=== PATIENT | female | born 1960 ===

== ENCOUNTER 2024-09-22 05:02 | Inpatient (IN) | payer OTHER, MEDICAID ==
[~2024-09-22] VITALS: Ht 162.6 cm; Wt 69.7 kg
[2024-09-22 07:43] LABS: Basophils # (auto) 0 10 ^3/uL (0-0.2); Basophils % (auto) 1.2 % (0.0-2.0); Eosinophils # (auto) 0 10 ^3/uL (0-0.8); Hematocrit 42.2 % (36.0-46.0); Hemoglobin 14.2 g/dL (12.2-16.2); Lymphocytes # (auto) 0.9 10 ^3/uL (0.4-5.4); Mean Corpuscular Hgb Conc. 33.7 g/dL (32.0-36.0); Mean Corpuscular Volume 83.2 fL (80.0-100.0); Monocytes # (auto) 0.4 10 ^3/uL (0-1.3); Monocytes % (auto) 8.8 % (0.0-12.0); Neutrophils # (auto) 2.7 10 ^3/uL (1.6-8.6); Nucleated Red Blood Cells % 0.2 %; Platelet Count (auto) 200 10^3/uL (140-450); Red Blood Cells 5.08 10^6/uL (4.0-5.20); Red Cell Distribution Width 14.3 % (11.8-14.3)
[2024-09-22 07:44] LABS: Potassium 4.6 mmol/L (3.5-5.1)
[2024-09-22 07:45] LABS: Anion Gap 9 (5-15); Calcium 10.2 mg/dL (8.7-10.4); Carbon Dioxide 23 mmol/L (20-31)
[2024-09-22 07:50] LABS: BUN/Creatinine Ratio 24.1 (10.0-20.0); Blood Urea Nitrogen 20 mg/dL (9-23)
[2024-09-22 07:51] LABS: CRP High Sensitivity 0.36 mg/dL (<1.0); Chloride 96 mmol/L (98-107); Sodium 128 mmol/L (136-145)
[2024-09-22 07:54] LABS: Glucose 637 mg/dL (74-106)
[2024-09-22 08:47] LABS: Erythrocyte Sedimentation Rate 18 mm/hr (0-20)
[2024-09-22] MEDS: InsuLIN REG 1unit/0.01ml Soln (100units/ml) SC ONE (08:47)
--- NOTE | 2024-09-22 08:47 | ED.PDOC ---
Back pain HPI HPI Comments This is a pleasant 63-year-old female with a history of diabetes, hyperlipidemia, hypertension scoliosis that presents with a chief complaint of atraumatic nonradiating right paralumbar back pain. Started two weeks ago and pain has been persistent since. No trauma no injury. Reports she is unable to get adequate relief with Melba and hydrocodone. States she takes opiates for her chronic arm pain. Denies history of chronic steroid use or history of osteoporosis Denies any history of cancer Denies fevers chills night sweats nausea vomiting unintentional weight loss Denies IV drug use history of HIV/TB Denies abdominal "tearing" pain Denies syncope Denies urinary incontinence or urinary changes Denies numbness tingling of the groin or inner thigh Denies previous back procedure or surgery Chief Complaint: Back Pain Time Seen by MD: 06:46 Reviewed Notes: Nurses Notes, Medications, Allergies Allergies: Coded Allergies: NO KNOWN ALLERGIES (Unverified , 09/22/24) Home Meds Reported Medications Atorvastatin Calcium (ATORVASTATIN CALCIUM) 40 Mg Tab, 1 TAB PO DAILY 09/22/24 Benazepril Hcl (Benazepril Hcl) 10 Mg Tab, 1 TAB PO DAILY 09/22/24 Trazodone Hcl (Trazodone Hcl) 50 Mg Tab, 1 TAB PO HS 09/22/24 Metformin Hydrochloride (Metformin Hcl) 500 Mg Tab, 1 TAB PO BID 09/22/24 Cyclobenzaprine HCl (Cyclobenzaprine Hydrochlo) 10 Mg Tab, 1 TAB PO Q8HPRN PRN 09/22/24 Ibuprofen Micronized (Ibuprofen) 800 Mg Tab, 1 TAB PO BIDPRN PRN 09/22/24 Acetaminophen W/ Codeine (Acetaminophen/Codeine) 1 Tab Tab, 1 TAB PO Q8H 09/22/24 Pregabalin (Pregabalin) 150 Mg Cap, 1 CAP PO BID 09/22/24 Information Source: Patient Mode of Arrival: Ambulatory Past Medical History PAST MEDICAL HISTORY: DM, High Lipids, HTN Surgical History: Denies all surgeries [employer] History: No Pertinent [employer] History Family History Family History: Reviewed,noncontributory to illness Social History Smoker: Non-Smoker Alcohol: Denies ETOH Use Drugs: Denies Drug Use All Other Systems: Reviewed and Negative (PER HPI) Physical Exam General Appearance: No Apparent Distress, Normal HEENT: Normal ENT Inspection, Pharynx Normal, TMs Normal Neck: Full Range of Motion, Non-Tender, Normal, Normal Inspection Respiratory: Chest Non-Tender, Lungs Clear, No Accessory Muscle Use, No Respiratory Distress, Normal Breath Sounds Cardiovascular: No Murmur, No Gallop, Regular Rate/Rhythm Breast Exam: Deferred Gastrointestinal: No Organomegaly, Non Tender, No Pulsatile Mass, Normal Bowel Sounds, Soft Genitalia: Deferred Pelvic: Deferred Rectal: Deferred Extremities: No calf tenderness, Normal capillary refill, Normal inspection, Normal range of motion, Non-tender, No pedal edema Musculoskeletal : Apperance: Normal Neurologic: Alert, No Motor Deficits, Normal Affect, Normal Mood, No Sensory Deficits Cerebellar Function: Normal Reflexes: Normal Skin: Dry, Normal Color, Warm Lymphatic: No Adenopathy Was a procedure done? Was a procedure done?: No Images 1 - Midline tenderness. No bony step-offs on palpation. Localized paraspinal tenderness to the lumbar region. Back Pain Differential Dx Differential Diagnosis: Musculoskeletal Pain X-Ray, Labs, Meds, VS Vital Signs Date Time Temp Pulse Resp B/P (MAP) Pulse Ox O2 Delivery O2 Flow Rate FiO2 09/22/24 09:36 84 18 141/90 09/22/24 09:06 84 18 141/90 09/22/24 09:05 84 18 96 Room Air* 0 21 09/22/24 09:05 98.3 84 18 141/90 (107) 96 98.3 09/22/24 07:17 97.8 82 16 128/77 (94) 95 97.8 09/22/24 05:17 97.3 90 18 161/93 (115) 95 97.3 Lab Test 09/22/24 08:34 09/22/24 08:03 09/22/24 07:07 09/22/24 05:15 Range/Units POC Glucose 436 *H 70-106 mg/dl Troponin I High Sensitivity < 3 L < 3 L </=34 ng/L Beta-Hydroxybutyric Acid Pending White Blood Count 4.0 L 4.4-10.8 10^3/uL Red Blood Count 5.08 4.0-5.20 10^6/uL Hemoglobin 14.2 12.2-16.2 g/dL Hematocrit 42.2 36.0-46.0 % Mean Corpuscular Volume 83.2 80.0-100.0 fL Mean Corpuscular Hemoglobin 28.0 28.0-32.0 pg Mean Corpuscular Hemoglobin Concent 33.7 32.0-36.0 g/dL Red Cell Distribution Width 14.3 11.8-14.3 % Platelet Count 200 140-450 10^3/uL Mean Platelet Volume 8.8 6.9-10.8 fL Neutrophils (%) (Auto) 67.0 37.0-80.0 % Lymphocytes (%) (Auto) 22.0 10.0-50.0 % Monocytes (%) (Auto) 8.8 0.0-12.0 % Eosinophils (%) (Auto) 1.0 0.0-7.0 % Basophils (%) (Auto) 1.2 0.0-2.0 % Neutrophils # (Auto) 2.7 1.6-8.6 10 ^3/uL Lymphocytes # (Auto) 0.9 0.4-5.4 10 ^3/uL Monocytes # (Auto) 0.4 0-1.3 10 ^3/uL Eosinophils # (Auto) 0 0-0.8 10 ^3/uL Basophils # (Auto) 0 0-0.2 10 ^3/uL Nucleated Red Blood Cells 0.2 % Erythrocyte Sedimentation Rate 18 0-20 mm/hr Sodium Level 128 L 136-145 mmol/L Potassium Level 4.6 3.5-5.1 mmol/L Chloride Level 96 L 98-107 mmol/L Carbon Dioxide Level 23 20-31 mmol/L Anion Gap 9 5-15 Blood Urea Nitrogen 20 9-23 mg/dL Creatinine 0.83 0.550-1.02 mg/dL Glomerular Filtration Rate Calc 78 >90 mL/min BUN/Creatinine Ratio 24.1 H 10.0-20.0 Serum Glucose 637 *H 74-106 mg/dL Calcium Level 10.2 8.7-10.4 mg/dL C-Reactive Protein High Sensitivity 0.36 <1.0 mg/dL Urine Color Pending Urine Clarity Pending Urine pH Pending Urine Specific [place] Pending Urine Protein Pending Urine Ketones Pending Urine Blood Pending Urine Nitrite Pending Urine Bilirubin Pending Urine Urobilinogen Pending Urine Leukocyte Esterase Pending Urine RBC 0 - 4 /hpf Urine Microscopic WBC 0-5 /HPF Urine Squamous Epithelial Cells <5 /hpf Urine Bacteria None Seen /hpf Urine Glucose Pending Current Medications Medications (Trade) Dose Ordered Sig/Selene Route Start Time Stop Time Status Last Admin Insulin Human Regular (InsuLIN R) 10 units ONCE ONCE SC 09/22/24 08:30 09/22/24 08:41 DC 09/22/24 08:47 Morphine Sulfate 4 mg ONCE ONCE IV 09/22/24 09:00 09/22/24 09:01 DC 09/22/24 09:06 Sodium Chloride 1,000 ml @ 1,000 mls/hr Q1H ONCE IV 09/22/24 09:00 09/22/24 09:59 DC 09/22/24 08:58 X-Ray, Labs, Meds, VS Comment The patient presents with signs and symptoms consistent uncontrolled diabetes/hyperglcemia. The cause appears to be dietary / noncompliance. No evidence of infection. No evidence of [place] by history or physical. No other obvious cause found. Labs without evidence of anion gap or acidosis to suggest DKA Patient given IVF, and insulin 10 U subcutaneous. Morphine x1 for her back pain. Patient's history, physical is also consistent with idiopathic nonradiating right lower back pain. Patient will be admitted for hyperglycemia and intractable back pain. Lumbar x-ray ordered and results pending at this time. Patient verbalized understanding of the above and is awaiting further evaluation by the admitting service. Time of 1ST Reevaluation: 08:39 Reevaluation 1ST: Improved Patient Education/Counseling: Diagnosis, Treatment Family Education/Counseling: Diagnosis, Treatment Departure 1 Departure Time of Disposition: 08:39 Impression: Primary Impression: Hyperglycemia Additional Impressions: Back pain Qualified Codes: M54.50 - Low back pain, unspecified Intractable back pain Disposition: ADMITTED INPATIENT Condition: Serious Critical Care Note Critical Care Time?: No Stability Stability form required: No Heart Score Heart Score: Heart Score Response (Comments) Value History N/A 0 EKG N/A 0 Age N/A 0 Risk Factors N/A 0 Troponin N/A 0 Total 0 EL QUIROZ NP September 22, 2024 08:47
[2024-09-22] MEDS: SODIUM CHLORIDE 0.9% 1,000 ML IV ONE ×2 (08:58→12:28)
[2024-09-22 09:05] VITALS: PULSE 84; RESP 18; O2SAT 96
[2024-09-22] MEDS: MORPHINE SULFATE 4 MG/ML SYR/VIAL IV ONE (09:06)
--- NOTE | 2024-09-22 10:13 | DVH ---
XY LUMBAR SPINE 3 VIEW, HISTORY: Back pain. R/o fracture COMPARISON: None TECHNICAL DATA: Frontal and lateral views were obtained of the lumbar spine . FINDINGS: There are 5 lumbar type vertebral bodies. Lumbar curvature is within normal limits. There is no spond ylolisthesis. Vertebral body heights are maintained. Disk heights are narrow. The facet joints appear normal. The sacroiliac joints are symmetric. Paraspinal soft tissues are within normal limits. IMPRESSION: No acute fracture or dislocation of the lumbar spine.
[2024-09-22] MEDS ORDERED: ACET300T51 PO (10:25)
[2024-09-22] MEDS ORDERED: ATOR40TA52 PO (10:25)
[2024-09-22] MEDS ORDERED: TRAZ-227 PO (10:25)
[2024-09-22] MEDS ORDERED: BENA10TA90 PO (10:25)
[2024-09-22] MEDS ORDERED: IBUP-1455 PO (10:25)
[2024-09-22] MEDS ORDERED: PREG150C63 PO (10:25)
[2024-09-22] MEDS ORDERED: METF-370 PO (10:25)
[2024-09-22] MEDS ORDERED: CYCL-611 PO (10:25)
[2024-09-22] MEDS ORDERED: ONDANSETRON HCL 4 MG/2 ML VIAL IV PRN (10:30)
[2024-09-22] MEDS ORDERED: DEXTROSE (50%) 50ML SYRG IV PRN (10:30)
[2024-09-22] MEDS ORDERED: MORPHINE SULFATE INJ 2 MG/ml SYRG IV PRN (10:30)
[2024-09-22] MEDS ORDERED: HYDROcodone-ACET 5/325MG TAB PO PRN (10:30)
[2024-09-22] MEDS ORDERED: ACETAMINOPHEN 325 MG TAB PO PRN (10:30)
[2024-09-22] MEDS ORDERED: IBUPROFEN 800 MG TAB PO PRN (10:30)
--- NOTE | 2024-09-22 10:40 | DVHHP2 ---
History of Present Illness Reason for Visit: Back pain History of Present Illness Liza Pruett is a 63-year-old female with past medical history of hypertension, hyperlipidemia, diabetes, and chronic pain, who came in due to back pain. Patient states she has been experiencing back pain for about 2.5 weeks. She states she came to the hospital today due to it worsening. Lab work showed that the patient had elevated hyperglycemia. Patient states that she does take her medications at home, but that she does not check her blood sugar levels. Cardiovascular: HTN, hyperipidemia Musculoskeletal: Chronic low back pain Past Surgical History: Other (right arm, bladder sling) Smoke: No ALCOHOL: none Drugs: None Lives: with Family Domestic Violence: Neg Review of Systems Constitutional: No: Fever, Chills, Sweats, Weakness, Malaise, Other Eyes: No: Pain, Vision change, Conjunctivae inflammation, Eyelid inflammation, Other, Redness ENT: No: Ear pain, Ear discharge, Nose pain, Nose discharge, Nose congestion, Mouth pain, Mouth swelling, Throat pain, Throat swelling, Other Respiratory: No: Cough, Dry, Shortness of breath, SOB with excertion, Wheezing, Hemoptysis, Pleuritic Pain, Sputum, Wheezing, Other Cardiovascular: No: Chest Pain, Palpitations, Orthopnea, Paroxysmal Noc. Dyspnea, Edema, Lt Headedness, Other Gastrointestinal: No: Nausea, Vomiting, Abdominal Pain, Diarrhea, Constipation, Melena, Hematochezia, Other Genitourinary: No Dysuria, No Frequency, No Incontinence, No Hematuria, No Retention, No Other Musculoskeletal: back pain (right lower for 2.5 weeks); No: other, neck pain, shoulder pain, arm pain, hand pain, leg pain, foot pain Skin: No: Rash, Lesions, Jaundice, Bruising, Other Neurological: No: Weakness, Numbness, Incoordination, Change in speech, Confusion, Seizures, Other Allergies: Coded Allergies: NO KNOWN ALLERGIES (Unverified , 09/22/24) Medications Current Medications Medications Dose Ordered Sig/Selene Route Start Time Stop Time Status Last Admin Dose Admin Acetaminophen/ Hydrocodone Bitart 1 tab Q4HP PRN PO 09/22/24 10:30 UNV Ondansetron HCl 4 mg Q4HP PRN IV 09/22/24 10:30 UNV Docusate Sodium 100 mg BIDPRN PRN PO 09/22/24 10:30 UNV Acetaminophen 650 mg Q6HP PRN PO 09/22/24 10:30 UNV Morphine Sulfate 2 mg Q4HPRN PRN IV 09/22/24 10:30 UNV Exam Vital Signs Vital Signs Date Time Temp Pulse Resp B/P (MAP) Pulse Ox O2 Delivery O2 Flow Rate FiO2 09/22/24 09:36 84 18 141/90 09/22/24 09:05 96 Room Air* 0 21 09/22/24 09:05 98.3 98.3 General Appearance: Alert, Oriented X3, Cooperative, mild distress HEENT: Atraumatic, PERRLA Respiratory: Clear to auscultation, Normal air movement Cardiovascular: Regular rate, Normal S1, Normal S2, No murmurs Abdominal: Normal bowel sounds, Soft, No tenderness, No hepatospenomegaly Extremities: No clubbing, No cyanosis, No edema, Normal pulses, Other Skin: No rashes, No breakdown, No significant lesion Neuro: Normal gait, Normal speech, Strength at 5/5 X4 ext, Normal tone, Other ( Right lower back pain for 2.5 weeks) Psych/Mental Status: Mental status NL, Mood NL Labs/Xrays Labs Test 09/22/24 08:34 09/22/24 08:03 09/22/24 07:07 09/22/24 05:15 Range/Units POC Glucose 436 *H 70-106 mg/dl Troponin I High Sensitivity < 3 L </=34 ng/L White Blood Count 4.0 L 4.4-10.8 10^3/uL Red Blood Count 5.08 4.0-5.20 10^6/uL Hemoglobin 14.2 12.2-16.2 g/dL Hematocrit 42.2 36.0-46.0 % Mean Corpuscular Volume 83.2 80.0-100.0 fL Mean Corpuscular Hemoglobin 28.0 28.0-32.0 pg Mean Corpuscular Hemoglobin Concent 33.7 32.0-36.0 g/dL Red Cell Distribution Width 14.3 11.8-14.3 % Platelet Count 200 140-450 10^3/uL Mean Platelet Volume 8.8 6.9-10.8 fL Neutrophils (%) (Auto) 67.0 37.0-80.0 % Lymphocytes (%) (Auto) 22.0 10.0-50.0 % Monocytes (%) (Auto) 8.8 0.0-12.0 % Eosinophils (%) (Auto) 1.0 0.0-7.0 % Basophils (%) (Auto) 1.2 0.0-2.0 % Neutrophils # (Auto) 2.7 1.6-8.6 10 ^3/uL Lymphocytes # (Auto) 0.9 0.4-5.4 10 ^3/uL Monocytes # (Auto) 0.4 0-1.3 10 ^3/uL Eosinophils # (Auto) 0 0-0.8 10 ^3/uL Basophils # (Auto) 0 0-0.2 10 ^3/uL Nucleated Red Blood Cells 0.2 % Erythrocyte Sedimentation Rate 18 0-20 mm/hr Sodium Level 128 L 136-145 mmol/L Potassium Level 4.6 3.5-5.1 mmol/L Chloride Level 96 L 98-107 mmol/L Carbon Dioxide Level 23 20-31 mmol/L Anion Gap 9 5-15 Blood Urea Nitrogen 20 9-23 mg/dL Creatinine 0.83 0.550-1.02 mg/dL Glomerular Filtration Rate Calc 78 >90 mL/min BUN/Creatinine Ratio 24.1 H 10.0-20.0 Serum Glucose 637 *H 74-106 mg/dL Calcium Level 10.2 8.7-10.4 mg/dL C-Reactive Protein High Sensitivity 0.36 <1.0 mg/dL Urine RBC 0 - 4 /hpf Urine Microscopic WBC 0-5 /HPF Urine Squamous Epithelial Cells <5 /hpf Urine Bacteria None Seen /hpf XY LUMBAR SPINE 3 VIEW, FINDINGS: There are 5 lumbar type vertebral bodies. Lumbar curvature is within normal limits. There is no spondylolisthesis. Vertebral body heights are maintained. Disk heights are narrow. The facet joints appear normal. The sacroiliac joints are symmetric. Paraspinal soft tissues are within normal limits. IMPRESSION: No acute fracture or dislocation of the lumbar spine. Assessment/Plan Assessment/Plan Assessment: Uncontrolled diabetes mellitus, Back pain, Hyperglycemia, Hypertension, Hyperlipidemia, Chronic pain, Plan: Admit to Med-Surg, Accu checks Q AC&HS with sliding scale, Start glipizide, Pain management, UA sent, waiting on results, Home medications reconciled, Plan discussed with: Patient My Orders Orders - PRISCILLA SARAVIA Procedure Category Date Status Time Beta-Hydroxybutyrate LAB 09/22/24 In Process 09:35 Admit ADMIT 09/22/24 Transmitted 10:20 Code Status CODE 09/22/24 Transmitted 10:20 2 Gm Sodium Diet DIET 09/22/24 Transmitted Lunch Hydrocodone-Acet PHA 09/22/24 Logged 5/325mg Tab ([place] 10:30 Ondansetron Hcl PHA 09/22/24 Logged (Zofran) 10:30 Docusate Sodium PHA 09/22/24 Logged Capsule ([place] 10:30 Complete Blood Count LAB 09/23/24 Verified 04:00 Comprehensive LAB 09/23/24 Verified Metabolic Panel 04:00 Condition: Serious LEONID 09/22/24 In Process 10:20 Acetaminophen Tablet PHA 09/22/24 Logged (Tylenol Tablet) 10:30 Morphine Sulfate PHA 09/22/24 Logged Injection 10:30 Date of Service: September 22, 2024 Billing Provider: PRISCILLA SARAVIA Common Visit Codes: [id number] INP/OBS CARE (MOD) PRISCILLA SARAVIA September 22, 2024 10:40
[2024-09-22 11:03] VITALS: BP 126/111; PULSE 79; RESP 18; TEMP 98.6; O2SAT 98
[2024-09-22] MEDS: ACCU-CHEK COMFORT CURVE STRIP VI SCH (11:30)
[2024-09-22] MEDS: InsuLIN REG 1unit/0.01ml Soln (100units/ml) SC SCH ×2 (12:38→21:09)
[2024-09-22 13:00] VITALS: BP 97/69; PULSE 81; RESP 16; TEMP 97.9; O2SAT 86
[2024-09-22 15:00] VITALS: BP 105/69; PULSE 70; RESP 18; TEMP 98.2; O2SAT 97
[2024-09-22] MEDS: glipiZIDE 5 MG TAB PO ONE (16:11)
[2024-09-22] MEDS: ATORVASTATIN 20 MG TAB PO SCH (21:06)
[2024-09-22 21:11] VITALS: BP 107/66; PULSE 69; RESP 18; TEMP 97.7; O2SAT 97
[2024-09-22] MEDS: traZODone HCL 50 MG TAB PO SCH (21:57)
[2024-09-22] MEDS: PREGABALIN CAPSULE 75 MG CAP PO SCH (21:58)
[2024-09-23 01:00] VITALS: BP 109/69; PULSE 65; RESP 16; TEMP 97.9; O2SAT 100
[2024-09-23 05:00] VITALS: BP 108/66; PULSE 65; RESP 16; TEMP 98.1; O2SAT 97
[2024-09-23] MEDS: DOCUSATE SOD 100 MG CAP PO PRN (06:04)
[2024-09-23] MEDS: glipiZIDE 5 MG TAB PO SCH (06:05)
[2024-09-23 07:20] LABS: Basophils # (auto) 0 10 ^3/uL (0-0.2); Basophils % (auto) 0.8 % (0.0-2.0); Eosinophils # (auto) 0.1 10 ^3/uL (0-0.8); Eosinophils % (auto) 3.1 % (0.0-7.0); Hemoglobin 12.4 g/dL (12.2-16.2); Lymphocytes # (auto) 1.1 10 ^3/uL (0.4-5.4); Lymphocytes % (auto) 33.2 % (10.0-50.0); Mean Corpuscular Hemoglobin 28.1 pg (28.0-32.0); Mean Corpuscular Hgb Conc. 34.4 g/dL (32.0-36.0); Mean Corpuscular Volume 81.8 fL (80.0-100.0); Monocytes # (auto) 0.3 10 ^3/uL (0-1.3); Monocytes % (auto) 9.8 % (0.0-12.0); Neutrophils # (auto) 1.8 10 ^3/uL (1.6-8.6); Neutrophils % (auto) 53.1 % (37.0-80.0); Platelet Count (auto) 177 10^3/uL (140-450); Red Blood Cells 4.39 10^6/uL (4.0-5.20); Red Cell Distribution Width 14.1 % (11.8-14.3); White Blood Cell 3.3 10^3/uL (4.4-10.8)
[2024-09-23 07:32] LABS: Alanine Aminotransferase 25 U/L (7-40); Albumin 3.3 g/dL (3.2-4.8); Alkaline Phosphatase 110 U/L (46-116); Anion Gap 8 (5-15); Aspartate Aminotransferase 18 U/L (13-40); BUN/Creatinine Ratio 23.3 (10.0-20.0); Blood Urea Nitrogen 14 mg/dL (9-23); Carbon Dioxide 23 mmol/L (20-31); Chloride 105 mmol/L (98-107); Potassium 3.8 mmol/L (3.5-5.1); Sodium 136 mmol/L (136-145)
[2024-09-23 07:33] LABS: Bilirubin, Total 0.4 mg/dL (0.2-1.0)
[2024-09-23 07:34] LABS: Calcium 8.6 mg/dL (8.7-10.4); Glucose 318 mg/dL (74-106); Total Protein 5.3 g/dL (5.7-8.2)
[2024-09-23 09:00] VITALS: BP 121/71; PULSE 69; RESP 16; TEMP 97.5; O2SAT 95
[2024-09-23] MEDS: CYCLOBENZAPRINE HCL 10 MG TAB PO PRN (09:38)
[2024-09-23] MEDS: BENAZEPRIL HCL 10 MG TAB PO SCH (09:40)
[2024-09-23 13:00] VITALS: BP 91/55; PULSE 72; RESP 16; TEMP 98.4; O2SAT 95
--- NOTE | 2024-09-23 16:33 | DVHPN2 ---
Subjective in bed feeling well Changes from previous H/P or p: No Changes Eyes: No Pain, No Vision change, No Conjunctivae inflammation, No Eyelid inflammation, No Other, No Redness ENT: No Ear pain, No Ear discharge, No Nose pain, No Nose discharge, No Nose congestion, No Mouth pain, No Mouth swelling, No Throat pain, No Throat swelling, No Other Cardiovascular: No Chest Pain, No Palpitations, No Orthopnea, No Paroxysmal Noc. Dyspnea, No Edema, No Lt Headedness, No Other Respiratory: No Cough, No Dry, No Shortness of breath, No SOB with excertion, No Wheezing, No Hemoptysis, No Pleuritic Pain, No Sputum, No Other Gastrointestinal: No Nausea, No Vomiting, No Abdominal Pain, No Diarrhea, No Constipation, No Melena, No Hematochezia, No Other Genitourinary: No Dysuria, No Frequency, No Incontinence, No Hematuria, No Retention, No Other Musculoskeletal: No other, No neck pain, No shoulder pain, No arm pain; back pain (right lower for 2.5 weeks); No hand pain, No leg pain, No foot pain Skin: No Rash, No Lesions, No Jaundice, No Bruising, No Other Objective Vitals Vital Signs Date Time Temp Pulse Resp B/P (MAP) Pulse Ox O2 Delivery O2 Flow Rate FiO2 09/23/24 13:00 98.4 72 16 91/55 (67) 95 98.4 09/22/24 11:02 Room Air* 0 21 Intake/Output Intake and Output 09/23/24 07:00 Intake Total 1700 ml Output Total 550 ml Balance 1150 ml Intake Oral 700 ml IV Total 1000 ml Output Urine Total 550 ml # Voids 2 # Bowel Movements 1 General Appearance: Alert, Oriented X3 Lungs: Clear to auscultation Cardiovascular: Regular rate, Normal S1, Normal S2 Abdomen: Normal bowel sounds, Soft Medications Current Medications Medications Dose Ordered Sig/Selene Route Start Time Stop Time Status Last Admin Dose Admin Acetaminophen/ Hydrocodone Bitart 1 tab Q4HP PRN PO 09/22/24 10:30 Ondansetron HCl 4 mg Q4HP PRN IV 09/22/24 10:30 Docusate Sodium 100 mg BIDPRN PRN PO 09/22/24 10:30 09/23/24 09:38 100 MG Acetaminophen 650 mg Q6HP PRN PO 09/22/24 10:30 Morphine Sulfate 2 mg Q4HPRN PRN IV 09/22/24 10:30 Diagnostic Test (Pha) 1 strip ACHS 09/22/24 11:30 09/23/24 11:55 1 STRIP Insulin Human Regular HS SC 09/22/24 22:00 09/22/24 21:09 8 UNITS Insulin Human Regular AC SC 09/22/24 11:30 09/23/24 12:00 12 UNITS Dextrose 50 ml UD PRN IV 09/22/24 10:30 Benazepril HCl 10 mg DAILY PO 09/23/24 10:00 09/23/24 09:40 10 MG Cyclobenzaprine HCl 10 mg Q8HPRN PRN PO 09/22/24 10:30 09/23/24 09:38 10 MG Ibuprofen 800 mg BIDPRN PRN PO 09/22/24 10:30 Hold Trazodone HCl 50 mg HS PO 09/22/24 22:00 09/22/24 21:57 50 MG Atorvastatin Calcium 40 mg HS PO 09/22/24 22:00 09/22/24 21:06 40 MG Pregabalin 150 mg BID PO 09/22/24 22:00 09/23/24 09:39 150 MG Glipizide 5 mg QAM PO 09/23/24 07:00 09/23/24 06:05 5 MG Laboratory Results Laboratory Tests 09/23/24 05:40 Chemistry Test 09/23/24 05:40 Albumin 3.3 g/dL (3.2-4.8) Calcium Level 8.6 mg/dL (8.7-10.4) L Total Protein 5.3 g/dL (5.7-8.2) L LFT Test 09/23/24 05:40 Alanine Aminotransferase (ALT) 25 U/L (7-40) Alkaline Phosphatase 110 U/L (46-116) Aspartate Amino Transferase (AST) 18 U/L (13-40) Total Bilirubin 0.4 mg/dL (0.2-1.0) Urinalysis Test 09/22/24 05:15 Urine Color Pending Urine Clarity Pending Urine pH Pending Urine Specific [place] Pending Urine Protein Pending Urine Ketones Pending Urine Blood Pending Urine Nitrite Pending Urine Bilirubin Pending Urine Urobilinogen Pending Urine Leukocyte Esterase Pending Urine RBC /hpf (0 - 4) Urine Microscopic WBC /HPF (0-5) Urine Squamous Epithelial Cells /hpf (<5) Urine Bacteria /hpf (None Seen) Urine Glucose Pending Assessment/Plan Assessment/Plan Uncontrolled diabetes mellitus, Back pain, Hyperglycemia, Hypertension, Hyperlipidemia, Chronic pain, Accu checks Q AC&HS with sliding scale, Start glipizide, Pain management, UA sent, waiting on results, Plan discussed with: Patient Date of Service: September 23, 2024 Billing Provider: TIMMY NICHOLSON MD Common Visit Codes: [id number] INP/OBS CARE(HIGH) TIMMY NICHOLSON MD September 23, 2024 16:33
[2024-09-23 17:00] VITALS: BP 111/69; PULSE 73; RESP 15; TEMP 97.4; O2SAT 96
[2024-09-23 21:00] VITALS: BP 90/56; PULSE 73; RESP 14; TEMP 97.8; O2SAT 93
[2024-09-24 01:00] VITALS: BP 90/59; PULSE 67; RESP 14; TEMP 97.5; O2SAT 94
[2024-09-24 05:00] VITALS: BP 95/60; PULSE 67; RESP 14; TEMP 97.8; O2SAT 94
[2024-09-24 09:00] VITALS: BP 102/67; PULSE 68; RESP 16; TEMP 97.4; O2SAT 95
[2024-09-24 10:01] LABS: Urine Bacteria FEW /hpf (None Seen); Urine Blood Negative /uL (Negative); Urine Clarity Clear (Clear); Urine Color Light-Yellow (Yellow); Urine Protein, UAD Negative (Negative); Urine Specific Gravity 1.021 (1.001-1.035); Urine Squamous Epithelial Cell FEW /hpf (<5); Urine Urobilinogen Normal (Negative); Urine WBC 26 /HPF (0-5)
[2024-09-24 12:30] VITALS: BP 120/75; PULSE 85; RESP 17; TEMP 97; O2SAT 98
[2024-09-24] MEDS ORDERED: GLIP5TAB21 PO (13:57)
[2024-09-24] MEDS ORDERED: CYCL-611 PO (13:57)
[2024-09-24 16:55] VITALS: BP 108/69; PULSE 76; RESP 18; TEMP 97.7; O2SAT 96
--- NOTE | 2024-09-29 12:48 | DVHDS2 ---
Discharge Summary Date of Admission September 22, 2024 at 10:20 Date of Discharge: September 24, 2024 Labs/Diagnostic Data: Laboratory Results Test 09/24/24 09:22 09/24/24 05:47 09/23/24 05:40 09/22/24 08:03 Urine Color Light-yellow (Yellow) Urine Clarity Clear (Clear) Urine pH 6.0 (5.0-9.0) Urine Specific [place] 1.021 (1.001-1.035) Urine Protein Negative (Negative) Urine Ketones Negative (Negative) Urine Blood Negative /uL (Negative) Urine Nitrite Negative (Negative) Urine Bilirubin Negative (Negative) Urine Urobilinogen Normal mg/dL (Negative) Urine Leukocyte Esterase 1+ /uL (Negative) Urine RBC 1 /hpf (0 - 4) Urine Microscopic WBC 26 /HPF (0-5) Urine Squamous Epithelial Cells Few /hpf (<5) Urine Bacteria Few /hpf (None Seen) Urine Glucose 4+ mg/dL (Normal) POC Glucose 281 mg/dl (70-106) White Blood Count 3.3 10^3/uL (4.4-10.8) Red Blood Count 4.39 10^6/uL (4.0-5.20) Hemoglobin 12.4 g/dL (12.2-16.2) Hematocrit 36.0 % (36.0-46.0) Mean Corpuscular Volume 81.8 fL (80.0-100.0) Mean Corpuscular Hemoglobin 28.1 pg (28.0-32.0) Mean Corpuscular Hemoglobin Concent 34.4 g/dL (32.0-36.0) Red Cell Distribution Width 14.1 % (11.8-14.3) Platelet Count 177 10^3/uL (140-450) Mean Platelet Volume 8.7 fL (6.9-10.8) Neutrophils (%) (Auto) 53.1 % (37.0-80.0) Lymphocytes (%) (Auto) 33.2 % (10.0-50.0) Monocytes (%) (Auto) 9.8 % (0.0-12.0) Eosinophils (%) (Auto) 3.1 % (0.0-7.0) Basophils (%) (Auto) 0.8 % (0.0-2.0) Neutrophils # (Auto) 1.8 10 ^3/uL (1.6-8.6) Lymphocytes # (Auto) 1.1 10 ^3/uL (0.4-5.4) Monocytes # (Auto) 0.3 10 ^3/uL (0-1.3) Eosinophils # (Auto) 0.1 10 ^3/uL (0-0.8) Basophils # (Auto) 0 10 ^3/uL (0-0.2) Nucleated Red Blood Cells 0.0 % Sodium Level 136 mmol/L (136-145) Potassium Level 3.8 mmol/L (3.5-5.1) Chloride Level 105 mmol/L (98-107) Carbon Dioxide Level 23 mmol/L (20-31) Anion Gap 8 (5-15) Blood Urea Nitrogen 14 mg/dL (9-23) Creatinine 0.60 mg/dL (0.550-1.02) Glomerular Filtration Rate Calc 100 mL/min (>90) BUN/Creatinine Ratio 23.3 (10.0-20.0) Serum Glucose 318 mg/dL (74-106) Calcium Level 8.6 mg/dL (8.7-10.4) Total Bilirubin 0.4 mg/dL (0.2-1.0) Aspartate Amino Transferase (AST) 18 U/L (13-40) Alanine Aminotransferase (ALT) 25 U/L (7-40) Alkaline Phosphatase 110 U/L (46-116) Total Protein 5.3 g/dL (5.7-8.2) Albumin 3.3 g/dL (3.2-4.8) Beta-Hydroxybutyric Acid 1.814 mmol/L (< 0.4) Troponin I High Sensitivity < 3 ng/L (</=34) Test 09/22/24 07:07 Erythrocyte Sedimentation Rate 18 mm/hr (0-20) C-Reactive Protein High Sensitivity 0.36 mg/dL (<1.0) Other Laboratory Tests 09/23/24 05:40 Brief Hx & Hospital Course: Liza Pruett is a 63-year-old female with past medical history of hypertension, hyperlipidemia, diabetes, and chronic pain, who came in due to back pain. Patient states she has been experiencing back pain for about 2.5 weeks. She states she came to the hospital today due to it worsening. Lab work showed that the patient had elevated hyperglycemia. Patient states that she does take her medications at home, but that she does not check her blood sugar levels. Hyperglycemia controlled Discharged on glipizide Condition at Discharge: Good Final Diagnosis/Problems List uncontrolled diabetes type 2 Discharge Disposition: Home Discharge Instruct/Medications Diet: Cardiac 2g Na,low cholest Activity: No Restrictions, As Tolerated Follow Up/Referral: PCP in 7 days Medications: glipize and flexeril Discharge Statement: "Patient was advised to return to the ER or call 911 if any headaches, dizziness, shortness of breath, chest pain, abdominal pain, bleeding, fevers, or worsening of medical condition. Patient was counseled about treatment plan, medications, possible side effects, patientverbalized understanding. All questions were answered to the best of my ability. This discharge took greater then 30 minutes in planning, reviewing documentation, counseling the patient, and discussing with other team members." ASSESSMENT ASSESSMENT Assessment uncontrolled diabetes type 2 Date of Service: September 24, 2024 Billing Provider: TIMMY NICHOLSON MD Common Visit Codes: [id number] DISCH DAY >30min TIMMY NICHOLSON MD September 29, 2024 12:48
== END 2024-09-24 18:00 | disposition home or self-care (01) | DRG 638 ==
LOC: ER 05:02 → OVERFLOW 10:20 → WEST WING 18:42 → OVERFLOW 19:37 → EAST 21:30
PROVIDERS: ADMIT Hospitalist; ATTEND Hospitalist
DX: E11.65 Type 2 diabetes mellitus with hyperglycemia (principal); E87.1 Hypo-osmolality and hyponatremia; E78.5 Hyperlipidemia, unspecified; I10 Essential (primary) hypertension; G89.29 Other chronic pain; M54.50 Low back pain, unspecified; Z79.84 Long term (current) use of oral hypoglycemic drugs; Z79.899 Other long term (current) drug therapy; Z79.1 Long term (current) use of non-steroidal anti-inflammatories (NSAID); Z79.891 Long term (current) use of opiate analgesic
CPT/HCPCS: 36415; 72100; 80048; 80053; 81001; 82010; 82962; 84484; 85025; 85652; 86141; 96361; 96374; G0378; J1815; J2405